=== PATIENT | female | born 2005 | race Caucasian/White ===

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

== ENCOUNTER 2024-04-29 12:22 | Emergency (ER) | payer BC, SELFPAY ==
[2024-04-29 12:29] VITALS: BP 123/82; PULSE 86; RESP 18; TEMP 36.9; O2SAT 97; BMI 33.7
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
[2024-04-29 14:51] LABS: HIV 1/2/P24 Combo Screen* Negative (Negative)
[2024-04-30 22:06] LABS: Hep A Ab, IgM Negative (Negative); Hep B Core Ab, IgM Negative (Negative); Hep B Surface Antigen Negative (Negative); Hep C Ab by CIA Index 0.12 IV; Hep C Ab by CIA Interp Negative (Negative)
== END 2024-04-29 13:39 | disposition home or self-care (01) ==
PROVIDERS: Emergency Provider Student in an Organized Health Care Education/Training Program
DX: Z77.21 Contact with and (suspected) exposure to potentially hazardous body fluids (principal)
CPT/HCPCS: 36415; 80074; 86703; 99281; 99283

== ENCOUNTER 2025-03-30 05:30 | Emergency (ER) | payer OTHER, BC, SELFPAY ==
--- OUTSIDE RECORDS SUMMARY | 2025-03-30 05:32 | XMS_ITS | Clinical Summary ---
Author Organization [employer] [facility] Address [address] [place] [id number] Care Team Providers Care Residential Carpenter Name Role Phone Amber Holt MD Primary Care Provi perez Allergies Active Allergy Reactions Criticality Noted Date Comments Cephalexin 07/26/2010 diarrhea Medications escitalopram oxalate (LEXAPRO) 5 mg/5 mL solution Take 10 mg by mouth every morning. 01/05/2022 Active albuterol HFA (PRO-AIR; VENTOLIN; PROVENTIL) 90 mcg/actuation inhalerIndicati ons:Breathing problem Inhale 2 Puffs by mouth every 4 hours if needed (before exercise 15-20 minutes). 1 Each 1 03/06/2023 Active inhalational spacing deviceIndicatio ns:Breathing problem For home use. 1 Each 03/06/2023 Active hydrOXYzine HCL 2 mg/mL solution 01/12/2025 Active Active Problems Problem Noted Date Diagnosed Date Myopia of both eyes with astigmatism 03/16/2022 Unspecified constipation 08/07/2011 Delayed immunizations 07/27/2010 Resolved Problems Problem Noted Date Diagnosed Date Resolved Date Dental caries 11/30/2008 03/06/2023 Encounters Date Type Department Care Team Description 02/18/2025 11:20 AM CDT Office Visit [facility] [address] [place] [address] Paco Cespedes, OD Contact Lenses (CL Fitting) 02/18/2025 Travel from Last 3 Months Immunizations Immunization Administration Dates Next Due COVID-19 vaccine (Lagiar 30mcg/0.3mL) P F, MDV 05/17/2021,04/27/2021 DTaP 11/30/2008 [id number] (Pediarix) 03/13/2005,2004 DTaP-IPV (Kinrix) 08/07/2011 HIB HbOC (HibTITER) 03/13/2005,2004 Hepatitis A (Peds) 08/07/2011 Hepatitis B (Peds) 2004 Hib Conjugate, Unspecified 03/13/2005,2004 Pneumococcal conj 7-Valent (Prevnar 7) 5,2004 Tdap 02/24/2016 Family History Medical History Relation Name Comments Unknown Father Hyperlipidemia Maternal Grandmother Other Maternal Grandmother colon p roblems Other Mother Multiple sclero sis Anesthesia Problem No Family History Asthma No Family History Blood Disease No Family History Cancer-breast No Family History Cancer-colon No Family History Diabetes No Family History Heart Disease No Family History Relation Name Status Comments Father Maternal Grandmother Mother Social History Tobacco Use Types Packs/Day Years Used Date Smoking Tobacco: Never Passive Smoke Exposure: Never Smokeless Tobacco: Never Tobacco Cessation:Counseling Given: Not Answered Comments:no exposure to smoke Alcohol Use Standard Drinks/Week Comments No 0 (1 standard drink = 0.6 oz pur e alcohol) PHQ-2 Answer Date Recorded PHQ-2 TOTAL SCORE 0 08/29/2024 Social Connections Answer Date Recorded Frequency of Communication with Friends and Fami ly 0 01/26/2022 Financial Resource Strain Answer Date R ecorded Difficulty of Paying Living Expenses 3 01/26/2022 Difficulty of Paying Living Expenses Not on file 01/26/2022 Food Insecurity Answer Date Recorded Worried About Running Out of Food in the Last Ye ar 1 01/26/2022 Transportation Needs Answer Date Record ed Lack of Transportation (Medical) 1 01/26/2022 Housing Stability Answer Date Recorded Unable to Pay for Housing in the Last Year 1 01/26/2022 Comments No Sex and Gender Information Value Date Recorded Sex Assigned at Not on file Legal Sex Female 7:18 AM [employer] Gender Identity Not on file Sexual Orientation Not on file Obstetrics History Last Filed Vital Signs Vital Sign Reading Time Taken Comments Blood Pressure 101/68 03/06/2023 11:36 AM CDT Pulse 75 03/06/2023 11:36 AM CDT Temperature 37.3 C (99.1 F) 05/29/2017 5:04 PM [employer] Respiratory Rate 22 12/27/2015 4:06 PM CDT Oxygen Saturation 99% 03/06/2023 11:36 AM CDT Inhaled Oxygen Concentration - - Weight 92 kg (202 lb 12.8 oz) 03/06/2023 11:36 A M CDT Height 160 cm (5' 3) 03/06/2023 11:36 AM CDT Body Mass Index 35.92 03/06/2023 11:36 AM CDT Plan of Treatment Health Maintenance Due Date Last Done Comments Hepatitis B series for 19+ (4 of 4 - 4-dose series) 04/13/2005 03/13/2005, 2004, 2004 HPV series for age 9-45 (1 - 3-dose series) 10/13/2019 Hepatitis C screening for age 18-79 2022 Chlamydia for age 16-24 12/08/2023 12/07/2022, 01/26 BMI (ht and wt on same day) for age 18+ 03/06/2024 03/06/2023, 12/07/2022 Well Child Check for age 3-20 03/06/2024 03/06/2023, 01/26/2022, 02/24/2016, Additional history exists COVID-19 vaccine series (2024- season) 2025 05/17/2021, 04/27/2021 Influenza Vaccine (#1) 2025 Depression screening for age 12+ 08/29/2025 08/29/2024, 03/06/2023, 01/26/2022 Tetanus booster 02/23/2026 02/24/2016 RSV vaccine for adults or (1 - 1-dose 75+ series) 10/13/2079 Pneumococcal series for age 6-49 Aged Out 03/13/2005, 2004 No longer eligibl e based on patient's age to complete this topic HIV for age 15-65 Completed 01/26/2022 Meningococcal series for age 11-21 Aged Out No longer eligible based on patient's age to complete this topic Procedures Procedure Name Priority Date/Time Associated Diagnosis Comments GC CHLAMYDIA TRACH PROBE Routine 12/07/2022 10:30 AM CDT Routine screening for STI (sexually transmitted infection) ANTI HIV 1/2 Routine 01/26/2022 12:07 PM CDT Screening for HIV (human immunodeficiency virus) from Last 3 Months or Most Recently Relevant to Health Maintenance Results * GC CHLAMYDIA TRACH PROBE (12/07/2022 10:30 AM CDT) CHLAMYDIA PROBE Negative 9:01 PM CDT [facility] N GONORRHOEAE PROBE Negative 12/07/2022 9:01 PM CDT [facility] Other URINE SPECIMEN / Unknown Non-Blood / Unknown 12/07/2022 10:30 AM CDT 12/07/2022 11:14 AM CDT us Amber Holt MD MICROBIOLOGY Fin al Result [facility] [address] [place] [address], [place] * ANTI HIV 1/2 [19130.0] (01/26/2022 12:07 PM CDT) HIV-1/HIV-2 ANTIBODY Non-Reacti ve Non-Reacti ve 01/26/2022 11:00 PM CDT [facility] Comment:HIV-1 p24 and HIV-1/ HIV-2 Ab not detected. Blood BLOOD SPECIMEN / Unknown Venipuncture / Unknown 01/26/2022 12:07 PM CDT 01/26/2022 12:09 PM CDT us Amber Holt MD SEND OUTS Fin al Result [facility] [address] [place] [address], from Last 3 Months or Most Recently Relevant to Health Maintenance Insurance [facility] * Guarantor: FANNY CASTILLO Account Type Relation to Patient Date of Phone Billing Address Personal/Family Mother 1983 [address] [place] [address] Care Teams Residential Carpenter Relationship Specialty Start Date End Date Amber Holt MD [address] [place] [address] PCP - General Pediatric 01/26/22
[2025-03-30 05:35] VITALS: BP 120/81; PULSE 79; RESP 16; TEMP 36.6; O2SAT 98; BMI 34.2
[2025-03-30 06:19] LABS: Appearance Urine Clear (Clear)
--- NOTE | 2025-03-30 06:22 | ED_ITS ---
HPI - General Adult General Chief complaint: Back Injury/Pain Stated complaint: Lower back pain Time Seen by Provider: 03/30/25 05:51 Source: patient and family Mode of arrival: ambulatory Limitations: no limitations History of Present Illness HPI narrative: 19-year-old female with no prior significant musculoskeletal medical history presents to the emergency department for evaluation of back pain for the past 3 days, worsened at 1:00 a.m. this morning. Pain started when she was at work, she was pulling about 20 lb of weight off of the bottom shelf, pulling the weight towards her and upward when she felt a sharp pull in her back. Was able to keep going but with tenderness, pain gradually worsened over a few hours. The pain then was a little more manageable for a few days but then worsened this morning a few hours prior to arrival. She did not try any [id number] treatments that would typically be recommended. No Tylenol, ibuprofen, Mentholatum rubs, heat, etc.. No prior history of back surgery. She does feel like the pain wraps around her gluteal and left inguinal region. She has a slight achiness in her leg laterally on the thigh. Really no numbness. No loss of function of bowel, bladder or leg function. Does also have some urinary urgency but no true dysuria. Denies fever. Has some lower abdominal cramping as well. Wonders of the 2 are related. She reports past medical history is benign but then states that she takes Lexapro for anxiety, hydroxyzine a few times per year also. Allergy to Augmentin. ?Cannot swallow pills?. ROS is notable for the musculoskeletal and GI symptoms as above, otherwise denies times 12 systems. Related Data Home Medications ?Medication ?Instructions ?Recorded ?Confirmed escitalopram oxalate 5 mg/5 mL 5 mg PO DAILY 03/28/25 03/28/25 oral solution Previous Rx's ?Medication ?Instructions ?Recorded acetaminophen 160 mg chewable 960 mg (6 x 160 mg) PO Q 6H PRN #90 03/30/25 tablet (Children's Acetaminophen) tabs prednisolone 15 mg/5 mL oral 30 mg (10 mL) PO BID 5 da ys #100 mL 03/30/25 solution Allergies Allergy/AdvReac Type Severity Reaction Status Date / Time amoxicillin (From Augmentin) AdvReac Mild Gastrointestinal Verified 03/28/25 09:29 Upset clavulanic acid (From AdvReac Mild Gastrointestinal Verified 03/28/25 09:29 Augmentin) Upset [facility] Social History Smoking Status: Never smoker How often do you have a drink containing alcohol: never AUDIT-C Alcohol total score: 0 Non-prescribed substance use: denies use Exam Const: Vital Signs, click to edit/add: Vital Signs - 24 hr 03/30/25 05:35 Temperature 97.9 F Pulse Rate [Left P ulse Oximeter] 79 Respiratory Rate 16 Blood Pressure [Ri ght Upper Arm] 120/81 Pulse Oximetry 98 Oxygen Delivery Me thod Room Air Documenting provider has reviewed patient's vital signs: yes Common normals: no apparent distress General appearance: comfortable and well kempt HENMT: Common normals: normocephalic Head and scalp: normocephalic Other: Acyanotic lips, nontraumatic facial exam Eye: Common normals: conjunctivae normal Conjunctiva: conjunctiva(e) normal Neck & C-Spine: General: normal visual inspection Resp: Common normals: normal respiratory effort, no use of accessory muscles and clear to auscultation bilaterally Effort & inspection: able to speak in complete sentences Auscultation: clear to auscultation bilaterally : Common normals: no CVA tenderness Bladder/kidney exam: no CVA tenderness Back & Pelvis: Common normals: no CVA tenderness and thoracic and lumbar spine normal to inspection Other: Range of motion is normal but bending does increased pain. Extension also slightly increases pain. Pain is really localized on the left paraspinal muscles and left SI area. There is no midline tenderness. There is no step- offs or deformity. Spine is actually fairly straight. Spondylosis testing is negative bilaterally. Straight leg lift test is negative, indicates muscular etiology. Extremity: Other: Both legs appear normal to inspection, no swelling or deformity. No effusions of the joints. Normal range of motion of the hip and knee. Neuro: Other: Normal strength and sensation in both legs, proximal and distal, medial and lateral. Psych: Common normals: thought process normal Appearance: well kempt Thought process: normal thought process Skin: Common normals: no rashes or lesions noted General skin exam: no rashes or lesions noted Course Course ED Course: 19-year-old female with evidence of muscular strain, unlikely major neurological injury based on reassuring exam. I suspect that the urinary symptoms may actually be unrelated and of recommended a urinalysis. Will await findings. She was hesitant to accept oral treatment but I did convince her to try an IM injection of Toradol for her pain while we wait for the urine results. Reevaluation(s) Time of Reevaluation #1: 06:45 Reevaluation #1: Counseled patient on urinalysis findings, does not seem like there is a kidney stone, urine infection or other compounding factors. Recommend 5 day course of prednisolone, Tylenol. Dosing discussed. Written instructions provided, home exercise plan encouraged. Physical therapy encouraged. Alarm symptoms reviewed that would warrant ED presentation. No further questions from patient or family Vital Signs Vital signs: Initial Vital Signs Temperature 97.9 F 03/30/25 05:35 Temperature Source Temporal Artery Scan 03/30/25 05:35 Pulse Rate 79 03/30/25 05:35 Pulse Rhythm Regular 03/30/25 05:35 Respiratory Rate 16 03/30/25 05:35 Blood Pressure 120/81 03/30/25 05:35 Blood Pressure Mean 94 03/30/25 05:35 Blood Pressure Position Sitting 03/30/25 05:35 Pulse Oximetry 98 03/30/25 05:35 Oxygen Delivery Method Room Air 03/30/25 05:35 Vital Signs Temperature 97.9 F 03/30/25 05:35 Pulse Rate 79 03/30/25 05:35 Respiratory Rate 16 03/30/25 05:35 Blood Pressure 120/81 03/30/25 05:35 Pulse Oximetry 98 03/30/25 05:35 Oxygen Delivery Method Room Air 03/30/25 05:35 Temperature 97.9 F 03/30/25 05:35 Pulse Rate 79 03/30/25 05:35 Respiratory Rate 16 03/30/25 05:35 Blood Pressure 120/81 03/30/25 05:35 Pulse Oximetry 98 03/30/25 05:35 Oxygen Delivery Method Room Air 03/30/25 05:35 Medications Administered Medications: Generic Name Dose Route Start Last Admin Trade Name Freq PRN Reason Stop Dose Admin Ketorolac Tromethamine 30 mg 03/30/25 06:23 03/30/25 06:28 Ketorolac 30 Mg/Ml Inj IM 03/30/25 06:24 30 mg ONCE ONE Administration Medical Decision Making Lab Data Lab results reviewed: Yes I reviewed the patient's lab results Lab results narrative: No signs of infection or blood. Labs: Lab Results 03/30/25 Range/Units 06:05 Urine Color Yellow (Yellow) Urine Appearance Clear (Clear) Urine pH 5.5 (5.0-8.5) Ur Specific [place] >= 1.030 (1.000-1.030) Urine Protein Negative (Negative) Urine Glucose (UA) Negative (Negative) Urine Ketones Trace A (Negative) Urine Blood Negative (Negative) Urine Nitrite Negative (Negative) Urine Bilirubin Negative (Negative) Urine Urobilinogen 0.2 (0.2-1.0) Ur Leukocyte Esterase Negative (Negative) Discharge Plan Discharge Clinical Impression: Strain of lumbar region Patient Disposition: Home w/ Parent or Adult Condition: Stable Instructions: Muscle Strain (DC), Lower Back Exercises (ED) Additional Instructions: As we discussed, your clinical exam is consistent with a back strain. This is the same as a ?pulled muscle?. I am not detecting any signs of neurological impingement. These can be very frustrating and to take some time to heal. I have enclosed some low back exercises but I would strongly encourage that you work with a physical therapist again. Pulled muscles in the back can be prevented by strengthening the back and core muscles to help better support the body. Also learning to lift more with your legs and thighs will help reduce your chance of repeat injuries. Unfortunately, many people that tend to get these injuries get them again without a proper recovery plan. For pain, I recommend Tylenol 1000 mg every 6 hours. I have provided a prescription for chewable medication. Watch her dosing, as the [id number] chewables do come in different strength but tend to be significantly cheaper than the liquid medication. Suppositories may be cheaper for you also. There are also dissolvable packs that you mix into a beverage that may be a cheaper option for you as well. I have provided a prescription for prednisolone 10 mL 2 times daily for 5 days. Try not to take it within 3 hours of bedtime as it may worsen insomnia. If the medicine flares your anxiety too much, discontinue use. It is okay to use pcga-iww-[id number] muscle rubs with Mentholatum, Salonpas patches or other similar treatments. Heat at this point in the injury tends to be more helpful than ice. Consider talking to your primary care provider about a referral to speech therapy for learning how to swallow pills. Think should start to improve in a few more days. If you have sudden loss of bowel or bladder control or are unable to move your legs, please return to the emergency department. Prescriptions: New acetaminophen [Children's Acetaminophen] 160 mg tablet,chewable 960 mg PO Q6H PRNQty: 90 1RF prednisolone 15 mg/5 mL solution 30 mg PO BID 5 Days Qty: 100 0RF No Action escitalopram oxalate 5 mg/5 mL solution 5 mg PO DAILY Follow Up/Referrals: Provider,Not a Local [Primary Care Provider, Family Practice] Stand Alone Forms: [employer] Info Instructions
== END 2025-03-30 06:53 | disposition home or self-care (01) ==
LOC: ED 06:26
PROVIDERS: Emergency Provider Family Medicine
DX: S33.5XXA Sprain of ligaments of lumbar spine, initial encounter (principal); R39.15 Urgency of urination; X50.0XXA Overexertion from strenuous movement or load, initial encounter; Y99.0 Civilian activity done for income or pay
CPT/HCPCS: 81003; 96372; 99283; 99284; J1885

== ENCOUNTER 2025-04-16 13:21 | Outpatient (CLI) | payer BC, SELFPAY ==
[2025-04-16 23:56] LABS: Chlamydia DNA Amplified* NOT DETECTED (No Detected); GC DNA Amplified* NOT DETECTED (No Detected)
== END 2025-04-16 13:22 | disposition home or self-care (01) ==
LOC: KYNREF 13:21
PROVIDERS: PCP Nurse Practitioner Family; Visit Provider Nurse Practitioner Family
DX: Z00.00 Encounter for general adult medical examination without abnormal findings (principal)
CPT/HCPCS: 87491; 87591

== ENCOUNTER 2025-04-20 15:03 | Outpatient (CLI) | payer OTHER, SELFPAY ==
--- NOTE | 2025-04-20 15:30 | CRLHL7_ITS ---
For Patients: As a result of the Century Cures Act, medical imaging exams and procedure reports are released immediately into your electronic medical record. You may view this report before your referring provider. If you have questions, please contact your health care provider. INDICATION: Lifting injury, left lower back pain. TECHNIQUE: Multisequence multiplanar MRI of the lumbar spine without the use of intravenous contrast. COMPARISON: Correlated with lumbar spine radiographs dated 04/02/2025. FINDINGS: Normal vertebral alignment, stature, and intrinsic marrow signal intensity. The conus medullaris terminates normally at the L1-L2 level. The paraspinal soft tissues are unremarkable. There is minimal multilevel facet joint arthrosis and shallow symmetric disc bulging. Evaluation of the individual levels demonstrates no significant spinal canal or neural foraminal stenosis. IMPRESSION: 1. No evidence of acute injury. 2. Minimal lumbar spondylosis with no significant spinal canal or neural foraminal stenosis. Dictated by German Ibarra MD @ 04/21/2025 9:20:08 AM (Electronically Signed)
== END 2025-04-20 15:04 | disposition home or self-care (01) ==
PROVIDERS: PCP Nurse Practitioner Family; Visit Provider Nurse Practitioner Family
DX: M54.16 Radiculopathy, lumbar region (principal); M54.50 Low back pain, unspecified; M47.896 Other spondylosis, lumbar region
CPT/HCPCS: 72148